=== PATIENT | female | born 1990 | race Two or more races ===

== ENCOUNTER 2019-05-02 11:15 | Observation (INO) | payer MEDICAID ==
[~2019-05-02 11:15] MED LIST: PREN-153 OR; PREN-96 PO
[2019-05-02 13:09] LABS: Basophils # (auto) 0 uL; Basophils % (auto) 0.3 % (0.0-2.0); Eosinophils # (auto) 0.1 uL; Eosinophils % (auto) 0.6 % (0.0-7.0); Hematocrit 33.1 % (36.0-46.0); Hemoglobin 11.5 g/dL (12.2-16.2); Lymphocytes # (auto) 1.5 uL; Mean Corpuscular Hemoglobin 32.3 pg (28.0-32.0); Mean Corpuscular Hgb Conc. 34.9 g/dL (32.0-36.0); Mean Corpuscular Volume 92.5 fL (80.0-100.0); Monocytes # (auto) 0.5 uL; Monocytes % (auto) 5.9 % (0.0-12.0); Neutrophils # (auto) 7.1 uL; Neutrophils % (auto) 77.2 % (37.0-80.0); Platelet Count (auto) 170 10^3/uL (140-450); Red Blood Cells 3.58 10^6/uL (4.0-5.20); Red Cell Distribution Width 12.9 % (11.8-14.3); White Blood Cell 9.3 10^3/uL (4.4-10.8)
[2019-05-02 13:31] LABS: Alcohol, Urine < 3.0 mg/dL (0-5); Amphetamine Screen, Urine NEGATIVE (NEGATIVE); Barbiturate Scree,Urine NEGATIVE (NEGATIVE); Benzodiazephine Screen, Urine NEGATIVE (NEGATIVE); Cannabinoid Screen, Urine NEGATIVE (NEGATIVE); Cocaine Screen, Urine NEGATIVE (NEGATIVE); Opiate Scree,Urine NEGATIVE (NEGATIVE); Phencyclidine Screen, Urine NEGATIVE (NEGATIVE)
[2019-05-02 13:32] LABS: Calcium 8.5 mg/dL (8.5-10.1); Potassium 3.5 mmol/L (3.5-5.1)
[2019-05-02 13:35] LABS: BUN/Creatinine Ratio 20.7; Bilirubin, Total 0.3 mg/dL (0.2-1.0); Total Protein 6.9 g/dL (6.4-8.2)
[2019-05-02 13:47] LABS: Urine Bacteria FEW /hpf (None Seen); Urine Blood Negative /uL (Negative); Urine Mucus FEW (None Seen); Urine Specific Gravity 1.027 (1.001-1.035); Urine Sperm PRESENT /hpf (None Seen); Urine WBC 5 /hpf (0 - 5)
[2019-05-03 07:10] LABS: RPR Non Reactive (Non Reactive)
[2019-05-03 08:07] LABS: Rubella Antibodies, IgG 1.59 index (Immune >0.99)
== END 2019-05-02 12:55 | disposition home or self-care (01) | DRG 566 ==
LOC: LDRP 11:15
PROVIDERS: ADMIT Obstetrics & Gynecology; ATTEND Obstetrics & Gynecology
DX: O26.893 Other specified pregnancy related conditions, third trimester (principal); M54.9 Dorsalgia, unspecified; R10.9 Unspecified abdominal pain; Z3A.28 28 weeks gestation of pregnancy
CPT/HCPCS: 36415; 59025; 76805; 80053; 80307; 81001; 81002; 84112; 85025; 86592; 86703; 86762; 86850; 86900; 86901; 87340; G0378

== ENCOUNTER 2019-07-15 23:37 | Inpatient (IN) | payer MEDICAID ==
[~2019-07-15] VITALS: Ht 172.7 cm; Wt 79.8 kg
[2019-07-16] MEDS ORDERED: LACT. RINGERS/OXYTOCIN 20UNITS 1,000 ML IV SCH (00:27)
[2019-07-16] MEDS ORDERED: METHYLERGONOVINE MALEATE 0.2 MG/ML AMP IM PRN (00:30)
[2019-07-16] MEDS ORDERED: PROMETHAZINE HCL 25 MG/ML 1ML IV ONE (00:30)
[2019-07-16] MEDS ORDERED: CARBOPROST TROMETHAMINE 250 MCG/1ML VIAL IM PRN (00:30)
[2019-07-16] MEDS ORDERED: WITCH HAZEL-GLYCERIN PAD TOP PRN (00:30)
[2019-07-16] MEDS ORDERED: PHISODERM TOP SOLN 240ML BTL TOP PRN (00:30)
[2019-07-16] MEDS ORDERED: NALBUPHINE HCL 10 MG/1ml INJECTION IV PRN (00:30)
[2019-07-16] MEDS ORDERED: DERMOPLAST 60ML BOTTLE TOP PRN (00:30)
[2019-07-16] MEDS ORDERED: LIDOCAINE 2%HCL (LOCAL ANESTH.) INJ 20ML MDV IJ ONE (00:30)
[2019-07-16] MEDS: LACTATED RINGER'S 1,000 ML IV SCH ×2 (01:58→11:40)
[2019-07-16 02:03] LABS: Lymphocytes # (auto) 1.8 uL; Mean Corpuscular Volume 86.7 fL (80.0-100.0); Neutrophils # (auto) 7.1 uL; Nucleated Red Blood Cells % 0.1 %; Red Cell Distribution Width 14.4 % (11.8-14.3); White Blood Cell 9.5 10^3/uL (4.4-10.8)
[2019-07-16 02:17] LABS: INR < 0.93 (0.9-1.15); Partial Thromboplastin Time 24.6 sec (23.64-32.05)
[2019-07-16 02:21] LABS: Basophils # (auto) 0 uL; Basophils % (auto) 0.4 % (0.0-2.0); Eosinophils # (auto) 0 uL; Eosinophils % (auto) 0.5 % (0.0-7.0); Hematocrit 33.5 % (36.0-46.0); Hemoglobin 11.5 g/dL (12.2-16.2); Mean Corpuscular Hemoglobin 29.7 pg (28.0-32.0); Mean Corpuscular Hgb Conc. 34.2 g/dL (32.0-36.0); Monocytes # (auto) 0.6 uL; Monocytes % (auto) 5.9 % (0.0-12.0); Neutrophils % (auto) 74.2 % (37.0-80.0); Platelet Count (auto) 144 10^3/uL (140-450); Red Blood Cells 3.87 10^6/uL (4.0-5.20)
[2019-07-16 02:24] LABS: Albumin 2.7 g/dL (3.4-5.0); Calcium 8.5 mg/dL (8.5-10.1); Potassium 3.7 mmol/L (3.5-5.1)
[2019-07-16 02:27] LABS: Urine Bacteria FEW /hpf (None Seen); Urine Blood Negative /uL (Negative); Urine Specific Gravity 1.003 (1.001-1.035); Urine WBC <1 /hpf (0 - 5)
[2019-07-16 02:28] LABS: BUN/Creatinine Ratio 17.9; Bilirubin, Total 0.3 mg/dL (0.2-1.0); Total Protein 6.6 g/dL (6.4-8.2)
[2019-07-16 02:37] LABS: Alcohol, Urine < 3.0 mg/dL (0-5); Amphetamine Screen, Urine NEGATIVE (NEGATIVE); Barbiturate Scree,Urine NEGATIVE (NEGATIVE); Cannabinoid Screen, Urine NEGATIVE (NEGATIVE); Cocaine Screen, Urine NEGATIVE (NEGATIVE); Opiate Scree,Urine NEGATIVE (NEGATIVE); Phencyclidine Screen, Urine NEGATIVE (NEGATIVE)
[2019-07-16 03:08] LABS: Benzodiazephine Screen, Urine NEGATIVE (NEGATIVE)
[2019-07-16] MEDS ORDERED: ACETAMINOPHEN 325 MG TAB PO PRN (06:15)
[2019-07-16] MEDS: IBUPROFEN 600 MG TAB PO PRN ×3 (06:28→18:25)
--- NOTE | 2019-07-16 07:08 | NUR ---
Teaching: Discussed benefits of and risks associated with not . Discussed different positions, proper latch, feeding cues, and baby-led . Patient educated on to call before each feeding to check baby blood sugar. All questions and concerns addressed at this time. Patient verbalized understanding of information and agrees to comply.
--- NOTE | 2019-07-16 08:00 | NUR ---
Ambulation: Patient OOB with standby assistance by RN. Patient ambulated to bathroom with steady gait. Patient able to void 300 CC without difficulty. Pericare teaching provided with returned demonstration by patient. Clean gown provided and bed linen changed. Patient ambulated back to bed with steady gait and no distress noted.
[2019-07-16 11:00] VITALS: BP 99/54
[2019-07-16 15:00] VITALS: BP 93/52
[2019-07-16 19:00] VITALS: BP 110/55
[2019-07-16 23:00] VITALS: BP 95/55
[2019-07-17 03:00] VITALS: BP 101/56
[2019-07-17 07:00] VITALS: BP 88/50
--- NOTE | 2019-07-17 09:10 | NUR ---
iv line removed and discontinued.2x2 pressure dressing applied.no bleeding noted.
--- NOTE | 2019-07-17 10:00 | NUR ---
Discharge: Discharge instructions given to mother of baby as ordered. Copies of and hearing screening, along with vaccination record given to mother. Mother encouraged to follow up with [employer]er of choice and to give envelope with infants information to [facility] [employer] at 1st office visit. All questions and concerns addressed. Mother of baby verbalized understanding and agreed to comply. Mother of baby encouraged to prepare for departure and notify RN ready to leave room for ID band removal/verification and car seat check.
--- NOTE | 2019-07-17 10:00 | NUR ---
Discharge: Discharge instructions given as ordered. Pt encouraged to follow up with BUSINESS ASSISTANT as instructed. All questions and concerns addressed. Patient verbalized understanding. Medication reconciliation completed and copy given to patient. All required/requested vaccines given and copies of vaccinations given to patient. Patient encouraged to prepare to depart unit.
--- NOTE | 2019-07-17 10:20 | NUR ---
Discharge: Patient taken to vehicle ambulatory with all personal belongings, accompanied by staff and family member. No distress noted at time of departure, no adverse changes in status since initial assessment.
[2019-07-18 07:11] LABS: RPR Non Reactive (Non Reactive)
== END 2019-07-17 10:20 | disposition home or self-care (01) | DRG 560 ==
LOC: LDRP 23:37 → OBSVTOIN 07-16 00:05
PROVIDERS: ADMIT Obstetrics & Gynecology; ATTEND Obstetrics & Gynecology
PROC: 10E0XZZ Delivery of Products of Conception, External Approach (ICD-10-PCS; principal; 2019-07-16)
PROC: 0KQM0ZZ Repair Perineum Muscle, Open Approach (ICD-10-PCS; 2019-07-16)
DX: O70.1 Second degree perineal laceration during delivery (principal); Z37.0 Single live birth; Z3A.39 39 weeks gestation of pregnancy
CPT/HCPCS: 36415; 59025; 59409; 80053; 80307; 81001; 81002; 84112; 85025; 85610; 85730; 86592; 86850; 86900; 86901; 96372; 96374; G0378; J2590

== ENCOUNTER → 2024-05-16 | Outpatient (CLI) | payer MEDICAID ==
[~2024-05-16] MED LIST changes: -PREN-153 OR; +PREN1TAB71 OR
[2024-05-16 09:26] LABS: Basophils # (auto) 0 10 ^3/uL (0-0.2); Eosinophils # (auto) 0.1 10 ^3/uL (0-0.8); Lymphocytes # (auto) 1.6 10 ^3/uL (0.4-5.4); Monocytes # (auto) 0.4 10 ^3/uL (0-1.3)
[2024-05-16 09:28] LABS: Basophils % (auto) 0.9 % (0.0-2.0); Eosinophils % (auto) 2.7 % (0.0-7.0); Hematocrit 36.3 % (36.0-46.0); Hemoglobin 12.2 g/dL (12.2-16.2); Lymphocytes % (auto) 33.7 % (10.0-50.0); Mean Corpuscular Hemoglobin 27.1 pg (28.0-32.0); Mean Corpuscular Hgb Conc. 33.5 g/dL (32.0-36.0); Mean Corpuscular Volume 80.9 fL (80.0-100.0); Monocytes % (auto) 8.9 % (0.0-12.0); Neutrophils # (auto) 2.6 10 ^3/uL (1.6-8.6); Neutrophils % (auto) 53.8 % (37.0-80.0); Red Blood Cells 4.48 10^6/uL (4.0-5.20); Red Cell Distribution Width 18.9 % (11.8-14.3); White Blood Cell 4.8 10^3/uL (4.4-10.8)
[2024-05-16 09:52] LABS: Urine Bacteria FEW /hpf (None Seen); Urine Blood 1+ /uL (Negative); Urine Clarity Clear (Clear); Urine Color Light-Yellow (Yellow); Urine Protein, UAD Negative (Negative); Urine Specific Gravity 1.019 (1.001-1.035); Urine Urobilinogen Normal (Negative); Urine WBC 2 /hpf (0 - 5); Urine pH 5.5 (5.0-9.0)
[2024-05-16 10:01] LABS: Alanine Aminotransferase 32 U/L (7-40); Alkaline Phosphatase 63 U/L (46-116); Anion Gap 4 (5-15); BUN/Creatinine Ratio 21.9 (10.0-20.0); Blood Urea Nitrogen 14 mg/dL (9-23); Calcium 9.5 mg/dL (8.7-10.4); Carbon Dioxide 25 mmol/L (20-30); Chloride 109 mmol/L (98-107); Glucose 86 mg/dL (74-106); LDL Cholesterol 111 mg/dL (< 100); Potassium 3.7 mmol/L (3.5-5.1); Sodium 138 mmol/L (136-145); Triglycerides 44 mg/dL (< 150)
[2024-05-16 10:02] LABS: Albumin 4.1 g/dL (3.2-4.8); Aspartate Aminotransferase 24 U/L (13-40); Cholesterol 164 mg/dL (< 200); HDL Cholesterol 45 mg/dL (40-59)
[2024-05-16 10:03] LABS: Bilirubin, Total 0.4 mg/dL (0.2-1.0); Total Protein 6.6 g/dL (5.7-8.2)
== END | disposition home or self-care (01) ==
LOC: LAB 09:04
PROVIDERS: ATTEND Internal Medicine
DX: Z13.29 Encounter for screening for other suspected endocrine disorder (principal)
CPT/HCPCS: 36415; 80053; 80061; 81001; 84439; 84443; 85025

== ENCOUNTER 2024-06-14 19:02 | Emergency (ER) | payer MEDICAID ==
[~2024-06-14] VITALS: Ht 180.3 cm; Wt 99.4 kg
[2024-06-14 19:04] VITALS: BP 115/71; PULSE 82; RESP 18; O2SAT 98
[2024-06-15] MEDS ORDERED: CEPH500C PO (00:10)
[2024-06-15] MEDS ORDERED: ACET500T58 PO (00:10)
[2024-06-15] MEDS: TETANUS-DIPTH-ACEL PERTUSSIS 0.5ML SYR Tdap IM ONE (00:26)
== END 2024-06-15 00:25 | disposition home or self-care (01) ==
LOC: ER 19:02
DX: S01.01XA Laceration without foreign body of scalp, initial encounter (principal); W18.09XA Striking against other object with subsequent fall, initial encounter; Y93.39 Activity, other involving climbing, rappelling and jumping off; Y92.89 Other specified places as the place of occurrence of the external cause; Y99.8 Other external cause status
CPT/HCPCS: 12001; 90471; 90715

== ENCOUNTER → 2025-06-18 | Outpatient (CLI) | payer MEDICAID ==
[~2025-06-18] MED LIST changes: +ACET500T58 PO; +CEPH500C PO
[2025-06-18 10:20] LABS: Hematocrit 38.3 % (36.0-46.0); Hemoglobin 13.1 g/dL (12.2-16.2); Mean Corpuscular Hemoglobin 29.7 pg (28.0-32.0); Mean Corpuscular Volume 87.0 fL (80.0-100.0); Nucleated Red Blood Cells % 0.0 %
[2025-06-18 10:57] LABS: Ferritin 4.0 ng/mL (10-291)
[2025-06-18 11:00] LABS: Albumin 4.4 g/dL (3.2-4.8); Alkaline Phosphatase 64 U/L (46-116); Anion Gap 6 (5-15); BUN/Creatinine Ratio 12.5 (10.0-20.0); Bilirubin, Total 0.7 mg/dL (0.2-1.0); Blood Urea Nitrogen 10 mg/dL (9-23); Calcium 9.2 mg/dL (8.7-10.4); Carbon Dioxide 28 mmol/L (20-31); Chloride 105 mmol/L (98-107); Cholesterol 164 mg/dL (< 200); Glucose 89 mg/dL (74-106); HDL Cholesterol 50 mg/dL (40-59); Potassium 4.0 mmol/L (3.5-5.1); Sodium 139 mmol/L (136-145); Total Protein 7.2 g/dL (5.7-8.2); Triglycerides 59 mg/dL (< 150)
[2025-06-18 11:01] LABS: Alanine Aminotransferase 41 U/L (7-40)
[2025-06-18 13:21] LABS: Hepatitis A Total Antibody Positive (Negative); Hepatitis B Surface Antigen Negative (Negative); Hepatitis C Antibody Negative (Negative)
== END | disposition home or self-care (01) ==
LOC: LAB 09:38
PROVIDERS: ATTEND Licensed Practical Nurse
DX: E53.8 Deficiency of other specified B group vitamins (principal); E55.9 Vitamin D deficiency, unspecified; F41.9 Anxiety disorder, unspecified; Z00.01 Encounter for general adult medical examination with abnormal findings; Z13.29 Encounter for screening for other suspected endocrine disorder; Z13.228 Encounter for screening for other metabolic disorders; Z13.1 Encounter for screening for diabetes mellitus
CPT/HCPCS: 36415; 80053; 80061; 82306; 82607; 82728; 83036; 84443; 85025; 86704; 86706; 86708; 86803; 87340